=== PATIENT | male | born 1975 | race Caucasian/White ===

== ENCOUNTER 2020-09-23 21:36 | Emergency (ER) | payer OTHER ==
[2020-09-23 21:49] LABS: BASOPHIL 0.4 % (0-2); EOSINOPHIL 0.2 % (0-5); HCT 51.4 % (42.0-52.0); HGB 16.6 g/dl (13.2-18.0); LYMPHOCYTE 14.2 % (15-48); MCH 29.6 pg (25.0-31.0); MCHC 32.3 g/dL (32.0-36.0); MCV 91.6 fL (78.0-100.0); MONOCYTE 6.3 % (0-12); MPV 10.2 fL (6.0-9.5); NEUTROPHIL 78.4 % (41-80); NRBC 0; PLT 229 K/uL (150-400); RBC 5.61 M/uL (4.70-6.00); RDW 14.6 % (11.5-14.0); WBC 8.1 K/uL (4.0-10.5)
[2020-09-23 22:14] LABS: ALBUMIN 3.7 g/dL (3.4-5.0); BILIRUBIN - TOTAL 0.2 mg/dL (0.2-1.0); BUN/CREAT RATIO (CALC) 6.7 RATIO; CREATININE 1.63 mg/dL (0.67-1.17); POTASSIUM 4.4 mmol/L (3.5-5.1); TOTAL PROTEIN 7.7 g/dL (6.4-8.2)
== END 2020-09-24 06:15 | disposition other institution (70) ==
LOC: FER 21:36
PROVIDERS: Emergency Medicine Emergency Medical Services
DX: T40.1X1A Poisoning by heroin, accidental (unintentional), initial encounter (principal); I21.4 Non-ST elevation (NSTEMI) myocardial infarction; S20.219A Contusion of unspecified front wall of thorax, initial encounter; R79.89 Other specified abnormal findings of blood chemistry; R00.0 Tachycardia, unspecified; X58.XXXA Exposure to other specified factors, initial encounter
CPT/HCPCS: 36415; 36600; 71046; 80053; 82550; 82803; 84484; 85025; 93005; 94760; J1644; J7030